=== PATIENT | female | born 1930 | race Caucasian/White ===

== ENCOUNTER 2019-07-28 18:58 | Inpatient (IN) | payer OTHER ==
[~2019-07-28] VITALS: Ht 152.4 cm; Wt 69.5 kg
[2019-07-28 19:48] LABS: BASOPHILS ABSOLUTE AUTO 0.04 K/mm3 (0.00-0.23); BASOPHILS PERCENT AUTO 0 % (0-2); EOSINOPHILS ABSOLUTE AUTO 0.09 K/mm3 (0.00-0.68); EOSINOPHILS PERCENT AUTO 1 % (0-6); Hematocrit 46.7 % (33.0-51.0); Hemoglobin 14.9 g/dL (11.5-16.0); IMMATURE GRAN ABSOLUTE AUTO 0.05 K/mm3 (0.00-0.10); IMMATURE GRAN PERCENT AUTO 0 % (0-1); LYMPHOCYTES ABSOLUTE AUTO 1.37 K/mm3 (0.84-5.20); LYMPHOCYTES PERCENT AUTO 12 % (21-46); MONOCYTES ABSOLUTE AUTO 0.86 K/mm3 (0.16-1.47); MONOCYTES PERCENT AUTO 7 % (4-13); Mean Corpuscular HGB 28.4 pg (26.0-34.0); Mean Corpuscular HGB Conc 31.9 g/dL (31.5-36.5); Mean Corpuscular Volume 89 fL (80-100); Mean Platelet Volume 9.8 fL (9.1-12.4); NEUTROPHILS ABSOLUTE AUTO 9.25 K/mm3 (1.96-9.15); NEUTROPHILS PERCENT AUTO 79 % (41-73); Platelet Count 207 K/mm3 (150-400); RDW Coefficient Variation 15.2 % (11.7-14.2); RDW Standard Deviation 50.3 fL (35.1-46.3); Red Blood Cell Count 5.25 M/mm3 (3.80-5.20); White Blood Cell Count 11.66 K/mm3 (4.00-11.30)
[2019-07-28 20:05] LABS: Albumin, Blood 4.2 g/dL (3.4-5.0); Albumin/Globulin Ratio 1.1 (0.8-1.8); Bilirubin, Total 0.9 mg/dL (0.1-1.0); Calcium, Blood 9.8 mg/dL (8.5-10.1); Creatinine, Blood 1.16 mg/dL (0.40-1.00); Globulin, Blood 3.8 g/dL (2.2-4.0); Potassium, Blood 3.7 mmol/L (3.5-5.5)
[2019-07-28 20:12] LABS: Source, Urine Catheter
[2019-07-28 20:14] LABS: Blood, Urine Neg (Neg); Glucose Qualitative, Urine Neg (Neg); Ketones, Urine 1+ (Neg); Leukocyte Esterase, Urine 2+ (Neg); Nitrite, Urine Pos (Neg); Protein, Urine 1+ (Neg); Specific Gravity, Urine 1.025 (1.003-1.022); Urobilinogen, Urine 2+ (Normal)
[2019-07-28 20:20] LABS: Bilirubin, Urine 1+ (Neg)
[2019-07-28 20:21] LABS: Appearance, Urine Hazy (Clear); Color, Urine Amber (P-Yellow)
[2019-07-28 20:22] LABS: Bacteria Many /hpf; Mucus Light (0-Heavy); Red Blood Cells, Urine 0-2 /hpf (0-2); Squamous Epithelial Cells Few /hpf (Few)
[2019-07-28] MEDS ORDERED: MAGCHL64ER (20:42)
[2019-07-28] MEDS ORDERED: SYNTHROID175 MCG PO (20:43)
[2019-07-28] MEDS ORDERED: Bupropion HCl200 MG PO (20:43)
[2019-07-28] MEDS ORDERED: FURO40 PO (20:43)
[2019-07-28] MEDS ORDERED: SITA100T2 PO (20:44)
[2019-07-28] MEDS ORDERED: Lotensin Hct 21 EACH PO (20:44)
[2019-07-28] MEDS ORDERED: ERGO50000 PO (20:44)
[2019-07-28] MEDS ORDERED: OXYC5 PO (20:45)
[2019-07-28] MEDS ORDERED: MIRALAX17 G1 PO (20:45)
[2019-07-28] MEDS ORDERED: METH10 PO (20:45)
[2019-07-28] MEDS ORDERED: SENNA LAXATIVE8.6 MG (20:46)
[2019-07-28] MEDS ORDERED: METAMUCIL POWD822 G1 (20:46)
[2019-07-28] MEDS ORDERED: Lyrica25 MG PO (20:47)
--- NOTE | 2019-07-29 04:20 | NUR ---
SHIFT SUMMARY CORAZON ARRIVED ON THE MEDICAL FLOOR LAST NIGHT FROM THE ER. SHE WAS ADMITTED FOR ENCEPHALOPATHY AND UTI. SHE HASN'T BEEN MAD OR RUDE TO ANY OF US, BUT HAS BEEN VERY SUBDUED AND UNCOMMUNICATIVE TONIGHT. THIS RN UNABLE TO GET HER ASSESSMENTS DONE SHE DOESN'T ANSWER ANY QUESTIONS AND DOESN'T ACKNOWLEDGE THAT ANYBODY IS TALKING. CORAZON'S LS WERE CLEAR T/O AND HER BT+ X4. SHE GOT ROCEPHIN IN THE ER AND NOW IS GETTING FLUIDS WITH POTASSIUM. SHE REFUSED HER LOVENOX INJECTION.
[2019-07-29 05:10] LABS: BASOPHILS ABSOLUTE AUTO 0.04 K/mm3 (0.00-0.23); BASOPHILS PERCENT AUTO 1 % (0-2); EOSINOPHILS PERCENT AUTO 3 % (0-6); Hematocrit 44.3 % (33.0-51.0); Hemoglobin 13.3 g/dL (11.5-16.0); IMMATURE GRAN ABSOLUTE AUTO 0.03 K/mm3 (0.00-0.10); IMMATURE GRAN PERCENT AUTO 0 % (0-1); LYMPHOCYTES PERCENT AUTO 22 % (21-46); MONOCYTES ABSOLUTE AUTO 0.67 K/mm3 (0.16-1.47); MONOCYTES PERCENT AUTO 9 % (4-13); Mean Corpuscular HGB 28.1 pg (26.0-34.0); Mean Platelet Volume 9.9 fL (9.1-12.4); NEUTROPHILS ABSOLUTE AUTO 5.28 K/mm3 (1.96-9.15); NEUTROPHILS PERCENT AUTO 67 % (41-73); Platelet Count 206 K/mm3 (150-400); RDW Coefficient Variation 15.4 % (11.7-14.2); RDW Standard Deviation 53.5 fL (35.1-46.3); Red Blood Cell Count 4.74 M/mm3 (3.80-5.20); White Blood Cell Count 7.92 K/mm3 (4.00-11.30)
[2019-07-29 05:15] LABS: Mean Corpuscular Volume 94 fL (80-100)
[2019-07-29 05:28] LABS: Anion Gap 7 mmol/L (6-16); Blood Urea Nitrogen 32 mg/dL (8-24); Bun/Creatinine Ratio 35.4 (12.0-20.0); CO2, Blood 31 mmol/L (21-32); Calcium, Blood 9.2 mg/dL (8.5-10.1); Chloride, Blood 100 mmol/L (98-108); Glomerular Filtration Rate >60 (60-); Glucose, Blood 127 mg/dL (70-99); Potassium, Blood 3.9 mmol/L (3.5-5.5); Sodium, Blood 138 mmol/L (136-145)
[2019-07-29] MEDS ORDERED: POTA10T PO (10:00)
--- NOTE | 2019-07-29 18:05 | NUR ---
SHIFT SUMMARY PATIENT IS CONFUSED. SHE HAS A BED ALARM ON. SHE IS ONE PERSON ASSIST TO THE BEDSIDE COMMODE. NO CURRENT CHANGE. CAREGIVER HAS CHECKED IN. DAUGHTER HAS ALSO CHECKED IN.
--- NOTE | 2019-07-30 06:00 | NUR ---
TELEMETRY: RECIEVED CALL FROM TELE MONITOR STATING PT HR IN THE 50S FOR THE LAST 10 MINUTES AND DROPPED ONCE TO 47. BASELINE RATE HAS BEEN IN THE 60S AND 70S. PT IS ASYMPTOMATIC, AWAKE AND RESPONSIVE, NO SOB, CAP REFILL 3 SEC. MANUAL PULSE CHECKED- 63. WILL CONTINUE TO MONITOR.
--- NOTE | 2019-07-30 06:11 | NUR ---
SHIFT SUMMARY: PT ALERT/ORIENTED TO SELF AND SURROUNDINGS, ABLE TO FOLLOW COMMANDS. SLOW TO RESPOND. UNABLE TO STATE BIRTHDATE. LONG PAUSES BEFORE SPEAKING AND FORGETFUL. T/F WITH 1 A AND FWW. CONTINENT. PAIN MANAGED WELL CURRENT ROUTINE PAIN MEDS. BED LOW, BED ALARM ON, CALL BUTTON EXPLAINED AND PLACED WITHIN REACH.
--- NOTE | 2019-07-30 16:21 | NUR ---
PATIENT PLEASANT AND COOPERATIVE WITH STAFF. NO PAIN IDENTIFIED OR COMPLAINED OF. VITALS STABLE. WORKED WITH THERAPY THIS AFTERNOON AND AMBULATED IN HER ROOM WITH CANES AND O2 SATS DECREASED TO THE LOW 80's; TOOK PATIENT A FEW MINUTES TO RECOVER ONCE IN BED. THERAPIST TO MAKE A MORE SPECIFIC NOTE REGARDING THIS FINDING. NO OTHER CHANGES NOTED AT THIS TIME. WILL CONTINUE TO MONITOR AND PROVIDE CARE NEEDED.
[2019-07-31 04:47] LABS: BASOPHILS ABSOLUTE AUTO 0.03 K/mm3 (0.00-0.23); BASOPHILS PERCENT AUTO 1 % (0-2); EOSINOPHILS ABSOLUTE AUTO 0.17 K/mm3 (0.00-0.68); EOSINOPHILS PERCENT AUTO 3 % (0-6); Hematocrit 41.1 % (33.0-51.0); Hemoglobin 12.7 g/dL (11.5-16.0); IMMATURE GRAN ABSOLUTE AUTO 0.01 K/mm3 (0.00-0.10); IMMATURE GRAN PERCENT AUTO 0 % (0-1); LYMPHOCYTES ABSOLUTE AUTO 2.07 K/mm3 (0.84-5.20); LYMPHOCYTES PERCENT AUTO 31 % (21-46); MONOCYTES ABSOLUTE AUTO 0.61 K/mm3 (0.16-1.47); MONOCYTES PERCENT AUTO 9 % (4-13); Mean Corpuscular HGB Conc 30.9 g/dL (31.5-36.5); Mean Platelet Volume 9.8 fL (9.1-12.4); NEUTROPHILS ABSOLUTE AUTO 3.75 K/mm3 (1.96-9.15); NEUTROPHILS PERCENT AUTO 56 % (41-73); Platelet Count 199 K/mm3 (150-400); RDW Coefficient Variation 15.3 % (11.7-14.2); Red Blood Cell Count 4.54 M/mm3 (3.80-5.20); White Blood Cell Count 6.64 K/mm3 (4.00-11.30)
[2019-07-31 04:48] LABS: Mean Corpuscular Volume 91 fL (80-100)
[2019-07-31 05:11] LABS: Albumin, Blood 3.2 g/dL (3.4-5.0); Anion Gap 6 mmol/L (6-16); Blood Urea Nitrogen 22 mg/dL (8-24); Bun/Creatinine Ratio 28.6 (12.0-20.0); CO2, Blood 30 mmol/L (21-32); Chloride, Blood 100 mmol/L (98-108); Creatinine, Blood 0.77 mg/dL (0.40-1.00); Glomerular Filtration Rate >60 (60-); Glucose, Blood 191 mg/dL (70-99); Sodium, Blood 136 mmol/L (136-145)
--- NOTE | 2019-07-31 06:09 | NUR ---
SHIFT SUMMARY NO ACUTE CHANGES TONIGHT. PT ONLY SLEPT ABOUT AN HOUR TOTAL TONIGHT. PT IS A&O X1-2, DISORIENTED TO DATE/YEAR, CURRENT EVENTS, MAKING ODD STATEMENTS. ACCORDING TO DAUGHTER, PT IS "PRETTY MUCH" BACK TO BASELINE. PT HAS CHRONIC BACK PAIN AND RECIEVES SCHEDULED METHADONE FOR IT. NO OTHER CHANGES TO REPORT WILL CONT TO MONITOR AND PROVIDE CARE UNTIL PRESUMED BY ONCOMING RN.
[2019-07-31] MEDS ORDERED: ACET325 PO (11:11)
[2019-07-31] MEDS ORDERED: EZETIMIBE-SIMV1 EAC3 PO (11:12)
[2019-07-31] MEDS ORDERED: Vsl#3 Capsule1 EACH PO (11:13)
[2019-07-31] MEDS ORDERED: CEFU500T30 PO (11:13)
[2019-07-31] MEDS ORDERED: Detrol LA4 MG PO (11:14)
--- NOTE | 2019-07-31 16:57 | NUR ---
[facility] MAICO. RX MEDICATIONS FAXED TO [facility]. D/C INSTRUCTIONS AND EDUCATION DISCUSSED WITH CAREGIVER AND PATIENT AND COPY PROVIDED. PATIENT DENIES ANY FURTHER QUESTIONS OR CONCERNS.
== END 2019-07-31 16:55 | disposition home or self-care (01) | DRG 690 ==
LOC: ER 18:58 → MEDS 20:41 → ENPENDDIS 07-31 08:30 → MEDS 07-31 16:55
PROVIDERS: Emergency Medicine; Internal Medicine Gastroenterology; Nurse Practitioner Acute Care; ADMIT Internal Medicine
DX: N39.0 Urinary tract infection, site not specified (principal); F03.91 Unspecified dementia, unspecified severity, with behavioral disturbance; F05 Delirium due to known physiological condition; Z16.11 Resistance to penicillins; Z16.39 Resistance to other specified antimicrobial drug; E11.9 Type 2 diabetes mellitus without complications; E03.9 Hypothyroidism, unspecified; B96.20 Unspecified Escherichia coli [E. coli] as the cause of diseases classified elsewhere; Z87.891 Personal history of nicotine dependence; G89.29 Other chronic pain; K59.09 Other constipation; I10 Essential (primary) hypertension; E78.00 Pure hypercholesterolemia, unspecified; F32.9 Major depressive disorder, single episode, unspecified; N39.41 Urge incontinence; I35.0 Nonrheumatic aortic (valve) stenosis
CPT/HCPCS: 36415; 70450; 71045; 80048; 80053; 80069; 81001; 82947; 85025; 87077; 87086; 87186; 93005; 93010; 93306; 96365; 97116; 97161; 97530; 99285-25; A9270; J0696; J1650; J3480; J7050; P9612

== ENCOUNTER 2019-08-09 19:35 | Inpatient (IN) | payer OTHER ==
[~2019-08-09] VITALS: Ht 165.1 cm; Wt 72.2 kg
[~2019-08-09 19:35] MED LIST: ACET325 PO; Bupropion HCl200 MG PO; CEFU500T30 PO; Detrol LA4 MG PO; ERGO50000 PO; EZETIMIBE-SIMV1 EAC3 PO; FURO40 PO; Lotensin Hct 21 EACH PO; Lyrica25 MG PO; MAGCHL64ER; METAMUCIL POWD822 G1; METH10 PO; MIRALAX17 G1 PO; OXYC5 PO; POTA10T PO; SENNA LAXATIVE8.6 MG; SITA100T2 PO; SYNTHROID175 MCG PO; Vsl#3 Capsule1 EACH PO
[2019-08-09 23:21] LABS: Source, Urine Clean Catch
[2019-08-09 23:29] LABS: Appearance, Urine Hazy (Clear); Bilirubin, Urine Neg (Neg); Blood, Urine 1+ (Neg); Color, Urine Yellow (P-Yellow); Glucose Qualitative, Urine Neg (Neg); Ketones, Urine Neg (Neg); Leukocyte Esterase, Urine 3+ (Neg); Nitrite, Urine Neg (Neg); Protein, Urine 1+ (Neg); Specific Gravity, Urine 1.025 (1.003-1.022); Urobilinogen, Urine NORM (Normal)
[2019-08-09 23:34] LABS: Bacteria Many /hpf; Squamous Epithelial Cells Many /hpf (Few); White Blood Cells, Urine 25-50 /hpf (0-5)
[2019-08-10 01:28] LABS: BASOPHILS ABSOLUTE AUTO 0.03 K/mm3 (0.00-0.23); BASOPHILS PERCENT AUTO 0 % (0-2); EOSINOPHILS ABSOLUTE AUTO 0.13 K/mm3 (0.00-0.68); EOSINOPHILS PERCENT AUTO 2 % (0-6); Hematocrit 37.5 % (33.0-51.0); Hemoglobin 11.4 g/dL (11.5-16.0); IMMATURE GRAN ABSOLUTE AUTO 0.02 K/mm3 (0.00-0.10); IMMATURE GRAN PERCENT AUTO 0 % (0-1); LYMPHOCYTES PERCENT AUTO 18 % (21-46); MONOCYTES ABSOLUTE AUTO 0.67 K/mm3 (0.16-1.47); MONOCYTES PERCENT AUTO 9 % (4-13); Mean Corpuscular HGB 28.5 pg (26.0-34.0); Mean Corpuscular HGB Conc 30.4 g/dL (31.5-36.5); NEUTROPHILS ABSOLUTE AUTO 5.57 K/mm3 (1.96-9.15); NEUTROPHILS PERCENT AUTO 71 % (41-73); Platelet Count 156 K/mm3 (150-400); RDW Coefficient Variation 14.6 % (11.7-14.2); RDW Standard Deviation 50.9 fL (35.1-46.3); White Blood Cell Count 7.82 K/mm3 (4.00-11.30)
[2019-08-10 01:29] LABS: Mean Corpuscular Volume 94 fL (80-100)
[2019-08-10 01:33] LABS: Alanine Aminotransfer (ALT/SGP 23 U/L (12-78); Albumin, Blood 3.4 g/dL (3.4-5.0); Albumin/Globulin Ratio 1.2 (0.8-1.8); Alk Phos 92 U/L (50-136); Anion Gap 5 mmol/L (6-16); Aspartate Aminotrans (AST/SGOT 45 U/L (12-37); Bilirubin, Total 0.5 mg/dL (0.1-1.0); Blood Urea Nitrogen 24 mg/dL (8-24); Bun/Creatinine Ratio 31.2 (12.0-20.0); CO2, Blood 30 mmol/L (21-32); Calcium, Blood 8.7 mg/dL (8.5-10.1); Chloride, Blood 104 mmol/L (98-108); Creatinine, Blood 0.77 mg/dL (0.40-1.00); Globulin, Blood 2.9 g/dL (2.2-4.0); Glomerular Filtration Rate >60 (60-); Glucose, Blood 130 mg/dL (70-99); International Normalized Ratio 1.07; Potassium, Blood 4.2 mmol/L (3.5-5.5); Prothrombin Time Results 11.3 Sec (9.7-11.5); Sodium, Blood 139 mmol/L (136-145); Total Protein, Blood 6.3 g/dL (6.4-8.2)
--- NOTE | 2019-08-10 06:16 | NUR ---
SHIFT SUMMARY PT RESTING IN ROOM COMFORTABLY AT THIS TIME. NO ACUTE CHANGES IN STATUS SINCE ARRIVAL FROM ED. PT HAS NOT SLEPT MUCH SINCE ARRIVAL. DENIES ANY PAIN TO HIP WHILE NOT MOVING. PT ONLY REPORTS PAIN WHEN BEING ADJUSTED IN BED. RESP EVEN UNLABORED ON RA W/ SATS >92%. DENIES CP OR SOB. BRUISING NOTED TO R HIP UPON ADMIT. PT REPORTS SOME HEART BURN REQUESTED SOME SODA AND ICE WATER REPORTS "ITS WHAT I DO AT HOME AND IT HELPS". PT RHONA OTHER NEEDS. CALL LIGHT IN REACH.
--- NOTE | 2019-08-10 08:13 | NUR ---
Angelina is complaining of having "urped up" some food, and having nausea which she says is now resolved. She declined breakfast, instead wants some tea and jello. C/o pain in her right hip. She was able to use the bedpan to void at this time, with assistance. Tolerated this fairly well.
--- NOTE | 2019-08-10 08:38 | NUR ---
Pt attempted to have some clear liquids, but said it made her nauseated, and she threw the sips up. States nausea gone now. She is requsting soda water, which she says helps her vomiting at home. States she has this nausea/vomiting problem about every 2 weeks.
--- NOTE | 2019-08-10 09:10 | NUR ---
The pt appears to have fallen asleep at this time.
--- NOTE | 2019-08-10 09:53 | NUR ---
Call to [facility] and spoke with blood donor recruiter. She states that Angelina lives independently in one of their cabins, so she does not have a medication list for her. Attempting to get the phone number of Kristina, who is the pt's caregiver, and possibly someone who would be able to give us a current medication list for the pt.
--- NOTE | 2019-08-10 09:59 | NUR ---
I reached Kristina, who said that she would be providing us with the pt's current medication list.
--- NOTE | 2019-08-10 10:04 | NUR ---
Dr. Pickett here to see the pt at this time. Weight bearing status clarified, new order for zofran received
[2019-08-10] MEDS ORDERED: VITORIN PO (11:08)
[2019-08-10] MEDS ORDERED: MIRALAX17 GM PO (11:10)
[2019-08-10] MEDS ORDERED: SENNA LAXATIVE8.6 MG PO (11:10)
--- NOTE | 2019-08-10 11:12 | NUR ---
Angelina appears to be sleeping in between conversations/ patient care. When awakened, she states that she is in no pain while resting in bed.
--- NOTE | 2019-08-10 12:22 | NUR ---
The pt is sitting up in the chair, her table and lunch tray in front of her. States she isn't really interested in having lunch. She was falling asleep while sitting in the chair. States that she doesn't do anything anymore, even at home, and often falls asleep in her chair.
--- NOTE | 2019-08-10 15:23 | NUR ---
The pt was awakened for vital signs; noted her spo2 was less than 80% on room air. She had been sleeping soundly and snoring. Even after awakening , her spo2 did not get higher than 86% on room air until oxygen was applied at 2 l/min. She was assisted to the bedside commode on 2 l/min of oxygen andspo2 was improved to greater than 94%. She states after using the bedside commode that she is in much less pain than before, and is feeling really good after her nap. Assisted back into bed, right side lying position.
--- NOTE | 2019-08-10 17:17 | NUR ---
Painful right hip this morning, on bedrest, c/o nausea and vomiting and unable to tolerate clear liquids. After zofran, she tolerated medications and clear liquids. Napping this afternoon and spow noted less than 80%. Caregiver Kristina came this afternoon just as oxygen was being applied to the pt and she said that the pt does have oxygen ordered 2 l/min at home, PRN, but that most of the time the pt refuses to use it. States she also has a CPAP that she does use at night. The pt said that she felt much better this afternoon, and was having much less pain. At dinnertime, she did not tolerate a few bites of food and immediately felt nauseated. Tolerating getting up to bedside commode using walker, with assistance.
--- NOTE | 2019-08-10 19:26 | NUR ---
bedside report Given to Fay Judd RN.
--- NOTE | 2019-08-11 05:53 | NUR ---
SHIFT SUMMARY PT SLEEPING IN ROOM COMFORTABLY AT THIS TIME. PT SLEPT WELL T/O NIGHT AND WORE CPAP T/O NIGHT AND TOLERATED WELL. PT BP WAS NOTED TO BE LOW AT START OF SHIFT, HOSPITALIST WAS NOTIFIED AND 500ML BOLUS OF NS WAS GIVEN. BP HAS SINCE INCREASED. RESP EVEN UNLABORED ON CPAP W/ SATS BETWEEN 88-92%. PT DENIED ANY CP OR SOB. DENIED NEEDS. PT CALLED FOR BEDPAN ONCE DURING THE NIGHT. CALL LIGHT IN REACH.
[2019-08-11 07:44] LABS: Source, Urine Clean Catch
[2019-08-11 07:49] LABS: Bilirubin, Urine Neg (Neg); Blood, Urine Neg (Neg); Glucose Qualitative, Urine Neg (Neg); Ketones, Urine Neg (Neg); Leukocyte Esterase, Urine 3+ (Neg); Nitrite, Urine Neg (Neg); Protein, Urine Neg (Neg); Urobilinogen, Urine NORM (Normal)
--- NOTE | 2019-08-11 07:52 | NUR ---
Angelina states that she is not having any pain unless she moves around. She got up to the Bedside commode this morning, and now is sittingin the chair,eating breakfast with a good appetite. Asked if she is nauseated, and she says "not yet". She is much more alert than yesterday. States that she has not had a bowel movement for about 2 days, and that she usually takes miralax. Wound like to have miralax today, she stated. Wearing oxygen at 2 l/min and while eating, spo2 is 87-88%. She wore the cpap last night. Blood pressure is low,but she denies lightheadedness/dizzyness, while sitting in the chair nor with activity of standing and moving to and from chairs this morning. Urine was sent for culture this morning.
[2019-08-11 07:57] LABS: Appearance, Urine Clear (Clear); Color, Urine Yellow (P-Yellow)
[2019-08-11 07:59] LABS: Red Blood Cells, Urine 0-2 /hpf (0-2); White Blood Cells, Urine 25-50 /hpf (0-5)
[2019-08-11 08:00] LABS: Bacteria Few /hpf; Yeast/Fungi Urine Few /hpf
[2019-08-11 08:01] LABS: Squamous Epithelial Cells Mod /hpf (Few)
--- NOTE | 2019-08-11 08:58 | NUR ---
Dr. Pickett here to see the pt; UPdated on pt condition, hypotension, and medications held this morning. New orders were received. The pt is sitting up in the chair, states she is feeling ok.
--- NOTE | 2019-08-11 10:36 | NUR ---
Blood pressure retaken, and noted still 88 systolic. Pt was asleep. She is sitting up in bed now, IV fluids infusing and she is drinking juice and Pepsi. Encouraging intake of oral fluids this morning. She is tolerating it without any nausea/vomiting.
--- NOTE | 2019-08-11 17:39 | NUR ---
The pt is sitting up in bed, with her dinner tray. STates not very hungry, but denies nausea/vomiting. States just doesn't feel like eating, but she is drinking fluids as she was encouraged.
--- NOTE | 2019-08-11 19:42 | NUR ---
SUMMARY The pt did not have any nausea today. She was encouraged to drink more fluids today. She was able to tolerated her meals, although she was not very hungry for dinner, she said. Assisted OOB using the walker for use of the bedside commode, and also to sit in the chair for meals. She tolerated this very well, complaining of pain only during the activity, and then said that when she was sitting or lying, the pain was gone. No pain medication was given today. she was given Miralax which she said she uses at home for constipation. STates she thinks her last BM was at least a couple of days ago. Blood pressure was low, improved and remained greater than 90 systolic late morning and through the afternoon. She denied any dizzyness/lightheadedness at rest or with activity. Diuretics and antihypertensives were held this morning. Oxygen requirements have remained at her baseline of 2 l/min n.c. delivery while awake, and CPAP while sleeping, with 2 l bleed in. Her daugher Jie was here today and indicated that the pt does not like to use her oxygen at home.
--- NOTE | 2019-08-12 05:35 | NUR ---
SHIFT SUMMARY PT SLEEPING IN ROOM COMFORTABLY AT THSI TIME. NO ACUTE CHANGES IN STATUS T/O NIGHT. RESP EVEN UNLABORED ON CPAP FOR SLEEP W/ SATS >92%. PT WAS MORE ALERT AND ORIENTED DURING FIRST PART OF SHIFT, IMPROVMENT FROM PREVIOUS NIGHT. DENIED ANY CP OR SOB. PT DID REPORT PAIN TO HIP WHEN MOVED, BUT REPORTED IMPROVED WHEN LET REST. DENIED OTHER NEEDS. CALL LIGHT IN REACH.
--- NOTE | 2019-08-12 07:33 | NUR ---
CARE ASSUMED CARE AND REPORT ASSUMED FROM ELISE PAVON. PT SITTING UP IN CHAIR WATCHING TV AND DRINKING MILK. 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 A/O X3; CALM AND COOPERATIVE. PAIN TOLERABLE AT THIS TIME. VSS. BP WNL. AFEBRILE. NO COMPLAINTS. SPO2 93% ON 2L NC. LUNG SOUNDS CLEAR TO COARSE IN BASES. CALL LIGHT WITHIN REACH. WILL CONTINUE TO MONITOR.
--- NOTE | 2019-08-12 12:28 | NUR ---
REASSESSMENT PT BACK AND FORTH BETWEEN BED AND CHAIR. C/O EARLIER; WAS GIVEN METHADONE PO AND OXYCODONE PO. VSS. CURRENTLY SITTING IN CHAIR EATING LUNCH. STATES PAIN IMPROVED AFTER RECIEVING MEDS. WILL CONTINUE TO MONITOR.
--- NOTE | 2019-08-12 14:44 | NUR ---
TRANSFER REPORT CALLED TO JEN IN SURGICAL FLOOR. PT TO BE TRANSPORTED TO ROOM 213.
--- NOTE | 2019-08-12 15:15 | NUR ---
ASSUMED CARE PT TRANSPORTED TO SURGICAL FLOOR AND SETTLED IN ROOM. CALL LIGHT IN PLACE. PT ORIENTED TO ROOM.
--- NOTE | 2019-08-12 17:55 | NUR ---
SHIFT SUMMARY PT HAS BEEN IN BED SINCE TRANSFER TO SURGICAL FLOOR. PT HAS BEEN RESTING QUIETLY WITH EYES CLOSED. SEEMS CONFUSED AT TIMES; BED ALARM ON. PT TOLERATING PO INTAKE. ASSISTED WITH ADL'S PRN.
--- NOTE | 2019-08-13 06:41 | NUR ---
SHIFT SUMMARY: CORAZON IS ORIENTED TO PERSON, PLACE AND SITUATION. SHE IS ABLE TO TRANSFER TO THE BEDSIDE COMMODE WITH 1 PERSON ASSIST ALTHOUGH SHE IS IMPULSIVE, FORGETTING TO CALL BEFORE GETTING UP FROM THE COMMODE. SHE HAS NOT ATTEMPTED TO GET OUT OF BED ON HER OWN THIS SHIFT. SHE IS TOLERATING PO INTAKE WELL. SHE IS ON CONTINUOUS PULSE OX, MAINTAINING SATURATIONS ABOVE 95% ON 3 L VIA NC. SHE DID WEAR HER CPAP FOR A FEW HOURS EARLY IN THE EVENING. SHE REPORTS THAT THE K-PAD IS HELPFUL FOR HER PAIN. SHE IS URINATING WITHOUT DIFFICULTY AND PASSING FLATUS. SHE IS ABLE TO MAKE HER NEEDS KNOWN. SHE IS LYING COMFORTABLY IN BED WITH HER CALL LIGHT IN REACH.
--- NOTE | 2019-08-13 09:00 | NUR ---
IV INFILTRATED WHEN FLUSHING IV FOR ABX.
--- NOTE | 2019-08-13 10:20 | NUR ---
DR WARRENANI BEEN TO SEE PT. PT NOW ATTEMPTING TO HAVE BM, REPORTS THINKING SHE NEEDS A SUPPOSITORY. DR NOTIFIED, SEE ORDERS.
--- NOTE | 2019-08-13 10:42 | NUR ---
PT GIVEN SUPPOSITORY SLOWLY WITHOUT DIFF WITH NO SIGNS OF BLEEDING. PT REPORTED EARLIER NORMAL TO HAVE SMALL PROLAPSE.
--- NOTE | 2019-08-13 14:52 | NUR ---
DISCHARGE: PT BEING DISCHARGED HOME WITH H.H.. [facility].H. PAPERWORK GIVEN THAT WAS ON FRONT OF CHART. PT AND CAREGIVER REPORTS UNDERSTANDING DIRECTIONS. CAREGIVER REPORTS HAVING WALKER AND W/C. BELONGINGS SENT WITH PT. CAREGIVER HAS PT'S O2 MACHINE FOR PT. IV OUT WNL. PT VOIDING, HAD LARGE BM TODAY PER PT. CAREGIVER BROUGHT IN PT'S WALKER AND WAS ADJUSTED BY PHYSICAL THERAPY.
== END 2019-08-13 14:56 | disposition home or self-care (01) | DRG 536 ==
LOC: ER 19:35 → ERHOLD 19:36 → PCU 08-10 03:32 → SURS 08-12 14:56
PROVIDERS: Emergency Medicine; Internal Medicine; ADMIT Hospitalist
DX: S32.591A Other specified fracture of right pubis, initial encounter for closed fracture (principal); N39.0 Urinary tract infection, site not specified; I95.9 Hypotension, unspecified; G47.33 Obstructive sleep apnea (adult) (pediatric); E11.9 Type 2 diabetes mellitus without complications; E03.9 Hypothyroidism, unspecified; F32.9 Major depressive disorder, single episode, unspecified; I10 Essential (primary) hypertension; E78.5 Hyperlipidemia, unspecified; G30.9 Alzheimer's disease, unspecified; F02.80 Dementia in other diseases classified elsewhere, unspecified severity, without behavioral disturbance, psychotic disturbance, mood disturbance, and anxiety; I70.0 Atherosclerosis of aorta; Z66 Do not resuscitate; Z99.81 Dependence on supplemental oxygen; Z87.891 Personal history of nicotine dependence; Z88.6 Allergy status to analgesic agent; Z79.899 Other long term (current) drug therapy
CPT/HCPCS: 36415; 73502; 80053; 81001; 82947; 85025; 85610; 85730; 87086; 94660; 94762; 96361; 96365; 96372; 96375; 96376; 97110; 97162; 97530; 99284-25; A9270-GY; G0378; J0696; J1650; J2405; J7030